=== PATIENT | female | born 1975 | race Caucasian/White ===

== ENCOUNTER 2017-05-06 09:37 | Emergency (ER) | payer OTHER ==
[~2017-05-06] VITALS: Ht 157.5 cm; Wt 90.7 kg
[~2017-05-06 09:37] MED LIST: AZITHROMYCIN250 MG PO; CLEOCIN HCL300 MG PO; INTESTINEX680 MG PO; LIDODERM30 EA TP; OBSTETRIX DHA1 EACH
== END 2017-05-06 17:04 | disposition home or self-care (01) ==
LOC: ER 09:37
DX: K52.9 Noninfective gastroenteritis and colitis, unspecified (principal)

== ENCOUNTER 2017-05-29 08:55 | Outpatient (CLI) | payer OTHER | END 2017-05-29 09:15 | disposition home or self-care (01) | LOC: LAB 08:55 | DX: Z13.220 Encounter for screening for lipoid disorders (principal); Z13.29 Encounter for screening for other suspected endocrine disorder; I11.9 Hypertensive heart disease without heart failure; M32.9 Systemic lupus erythematosus, unspecified ==

== ENCOUNTER 2017-06-12 08:47 | Outpatient (CLI) | payer OTHER | END 2017-06-12 08:49 | disposition home or self-care (01) | LOC: NUCLEAR 08:47 | DX: Z13.820 Encounter for screening for osteoporosis (principal) ==

== ENCOUNTER 2017-07-15 07:29 | Outpatient (CLI) | payer OTHER ==
[~2017-07-15] VITALS: Ht 152.4 cm; Wt 90.7 kg
== END 2017-07-15 07:45 | disposition home or self-care (01) ==
LOC: OFIC 805 07:29
DX: R09.81 Nasal congestion (principal); R49.0 Dysphonia; B34.9 Viral infection, unspecified

== ENCOUNTER 2017-07-29 08:46 | Outpatient (CLI) | payer OTHER ==
[~2017-07-29] VITALS: Ht 152.4 cm; Wt 90.7 kg
== END 2017-07-29 09:20 | disposition home or self-care (01) ==
LOC: OFIC 805 08:46
DX: J31.0 Chronic rhinitis (principal); J34.2 Deviated nasal septum; H90.3 Sensorineural hearing loss, bilateral

== ENCOUNTER 2017-08-08 07:13 | Outpatient (CLI) | payer OTHER | END 2017-08-08 07:33 | disposition home or self-care (01) | LOC: LAB 07:13 | DX: R04.0 Epistaxis (principal) ==

== ENCOUNTER 2017-08-19 06:00 | Day surgery (SDC) | payer OTHER ==
[~2017-08-19 06:00] MED LIST changes: +METFORMIN HCL500 MG PO
[2017-08-19] MEDS ORDERED: AYR SALINE50 ML NASAL (08:20)
== END 2017-08-19 11:50 | disposition home or self-care (01) ==
LOC: CIR.AMB 06:00
DX: J34.89 Other specified disorders of nose and nasal sinuses (principal); J00 Acute nasopharyngitis [common cold]

== ENCOUNTER 2017-08-27 10:20 | Outpatient (CLI) | payer OTHER ==
[~2017-08-27] VITALS: Ht 152.4 cm; Wt 90.7 kg
[~2017-08-27 10:20] MED LIST changes: +AYR SALINE50 ML NASAL
== END 2017-08-27 10:40 | disposition home or self-care (01) ==
LOC: OFIC 805 10:20
DX: J31.0 Chronic rhinitis (principal); J34.2 Deviated nasal septum